=== PATIENT | female | born 1975 | race Caucasian/White ===

== ENCOUNTER 2017-10-28 18:04 | Emergency (ER) | payer OTHER ==
[2017-10-28] MEDS: HYDROCODONE/APAP (10/325) TAB PO (18:58)
[2017-10-28] MEDS: ONDANSETRON (ODT) 4 MG TAB ODT (18:58)
== END 2017-10-29 07:25 | disposition home or self-care (01) ==
LOC: E/R 10-29 07:25
DX: S22.42XA Multiple fractures of ribs, left side, initial encounter for closed fracture (principal); J45.909 Unspecified asthma, uncomplicated; Y04.8XXA Assault by other bodily force, initial encounter; Z87.891 Personal history of nicotine dependence
CPT/HCPCS: 71045; 71100; 99283-25